=== PATIENT | female | born 1965 | race Two or more races ===

== ENCOUNTER → 2021-03-30 | Day surgery (SDC) | payer OTHER ==
[~2021-03-30] VITALS: Ht 147.3 cm; Wt 51.8 kg
[~2021-03-30] MED LIST: IV RINGERS,LACTATED 1000ML 1,000 ML IV SCH; PROPOFOL 10 MG/ML (20ML) VIAL. IV ONE
[2021-03-30 10:54] VITALS: BP 121/61
[2021-03-30 11:50] VITALS: BP 122/58
--- NOTE | 2021-03-30 12:23 | PREOP HP ---
DATE OF SERVICE: 03/30/2021 DATE OF PROCEDURE: 03/30/2021 REQUESTING PHYSICIAN: CONSTANTINO Callejas PRIMARY CARE PHYSICIAN: CONSTANTINO Callejas REASON FOR PROCEDURE: Colorectal cancer screening. HISTORY OF PRESENT ILLNESS: This is a 55-year-old female who presents today for colon cancer screening. She denies any prior history of colon cancer, family history of colon cancer or prior colonoscopy. MEDICATIONS: Please review MAR. 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 FAMILY MEDICAL HISTORY: No colon cancer. REVIEW OF SYSTEMS: A 13-point review of systems was done and is positive as per HPI, otherwise negative. PHYSICAL EXAMINATION: VITAL SIGNS: She is afebrile and vital signs are stable. GENERAL: She is a well-developed, well-nourished female in no apparent distress. HEENT: Oropharynx is clear. CARDIOVASCULAR: S1, S2. LUNGS: Clear. ABDOMEN: Active bowel sounds, soft, nontender, nondistended. EXTREMITIES: No edema. NEUROLOGIC: Awake, alert and oriented x 3. ASSESSMENT AND PLAN: 1. Colorectal cancer screening. The risks and benefits of the procedure including bleeding, perforation, nondiagnosis and sedation were explained and she has agreed to proceed. ISABELLE/NICOLÁS DR: Mabel TID: [id number]
--- NOTE | 2021-03-31 12:07 | PATHOLOGY ---
[facility] Accession Number: [id number] . 01 Material submitted: . sigmoid colon - SIGMOID POLYP . 01 Clinical history: . SCREENING/COLONOSCOPY . 02 Diagnosis: Colon biopsy, sigmoid polyp: - Tubular adenoma. LBQ 03/31/2021 1004 Local . 02 Comment: There is no high grade dysplasia or evidence of malignancy. (JPM/db; 03/31/2021) . 02 Electronically signed: . Tristan Bueno MD, Pathologist NPI- [id number] . 01 Gross description: . The specimen is received in formalin, labeled "Vahid, Kathy, sigmoid polyp". Received is a single segment of pale artis tissue measuring 0.3 cm in maximum dimensions. The specimen is entirely submitted in cassette A1. ([facility]; 03/30/2021) NRI/NRI 03/30/2021 1848 Local . 02 Pathologist provided ICD-10: D12.5 . 02 CPT . 686322 Specimen Comment: A courtesy copy of this report has been sent to [phone] Specimen Comment: Report sent to Specimen Comment: A duplicate report has been generated due to demographic updates. Performed at: 01 [facility] [address], [place], [place] [id number] MD Ian Castillo MD Phone: [phone] Performed at: 02 [facility] [address] [place], [place] [id number] MD Tristan Bueno MD Phone: [phone]
== END | disposition home or self-care (01) ==
LOC: SURG 10:18
PROVIDERS: ATTEND Internal Medicine Gastroenterology
DX: Z12.11 Encounter for screening for malignant neoplasm of colon (principal); K64.0 First degree hemorrhoids; D12.5 Benign neoplasm of sigmoid colon; K63.89 Other specified diseases of intestine; Z79.899 Other long term (current) drug therapy; Z98.890 Other specified postprocedural states
CPT/HCPCS: 45380; 88305; J2704